=== PATIENT | male | born 1970 | race Two or more races ===

== ENCOUNTER 2025-05-24 20:51 | Inpatient (IN) | payer OTHER ==
[2025-05-24 21:17] LABS: #Basophils 0.07 10x3/uL (0.0-0.2); #Eosinophils 0.88 10x3/uL (0.0-0.7); #Monocytes 1.21 10x3/uL (0.11-0.59); #Neutrophils 9.02 10x3/uL (1.40-6.50); %Basophils 0.5 % (0.0-1.0); %Eosinophils 6.7 % (0.0-10.0); %Lymphocytes 14.7 % (21.0-51.0); %Monocytes 9.2 % (0.0-10.0); %Neutrophils 68.5 % (42.0-75.0); Hematocrit 32.0 % (42.0-52.0); Hemoglobin 10.9 g/dL (14.0-18.0); Mean Corpuscular Hemoglobin 33.0 pg (27.0-31.0); Mean Corpuscular Volume 97.0 fL (78.0-98.0); Platelet Count 245 10x3/uL (130-400); Red Blood Cell (RBC) Count 3.30 mill/uL (4.70-6.10); White Blood Cell (WBC) Count 13.17 10x3/uL (4.8-10.8)
[2025-05-24] MEDS ORDERED: Nitroglycerin 0.4 MG TAB 1 EACH ONE (21:26)
[2025-05-24 21:32] LABS: ALT (SGPT) 28 U/L (Less than 45); AST (SGOT) 56 U/L (11-34); Albumin 3.5 g/dL (3.1-4.5); Alkaline Phosphatase 104 U/L (40-110); Anion Gap 11 mmol/L (10-20); BUN (Urea Nitrogen) 8 mg/dL (8.4-25.7); Bilirubin, Total 0.3 mg/dL (0.3-1.2); Calc. Creatinine Clearance 0 mL/min (70-130); Calcium 8.3 mg/dL (7.8-10.44); Carbon Dioxide 24 mmol/L (22-29); Chloride 107 mmol/L (98-107); Globulin 2.5 g/dL (2.4-3.5); Glucose 97 mg/dL (70-105); Potassium 3.7 mmol/L (3.5-5.1); Sodium 138 mmol/L (136-145)
[2025-05-25] MEDS ORDERED: Ondansetron PF 4 MG/2 ML Vial IVP PRN (01:29)
[2025-05-25] MEDS ORDERED: Nitroglycerin 0.4 MG TAB (25 Tab Bottle) SL PRN (01:34)
[2025-05-25 03:52] VITALS: BMI 24.0
[2025-05-25 04:25] LABS: #Basophils 0.05 10x3/uL (0.0-0.2); #Eosinophils 1.06 10x3/uL (0.0-0.7); #Monocytes 1.30 10x3/uL (0.11-0.59); #Neutrophils 10.61 10x3/uL (1.40-6.50); %Basophils 0.3 % (0.0-1.0); %Eosinophils 7.1 % (0.0-10.0); %Lymphocytes 12.3 % (21.0-51.0); %Monocytes 8.7 % (0.0-10.0); %Neutrophils 71.3 % (42.0-75.0); Hematocrit 37.4 % (42.0-52.0); Hemoglobin 12.7 g/dL (14.0-18.0); Mean Corpuscular Hemoglobin 32.8 pg (27.0-31.0); Mean Corpuscular Volume 96.6 fL (78.0-98.0); Platelet Count 306 10x3/uL (130-400); Red Blood Cell (RBC) Count 3.87 mill/uL (4.70-6.10); White Blood Cell (WBC) Count 14.89 10x3/uL (4.8-10.8)
[2025-05-25] MEDS: Aspirin Chewable 81 MG TAB PO SCH ×2 (04:33→09:11)
[2025-05-25 05:23] LABS: ALT (SGPT) 130 U/L (Less than 45); AST (SGOT) 181 U/L (11-34); Albumin 4.1 g/dL (3.1-4.5); Alkaline Phosphatase 167 U/L (40-110); Anion Gap 16 mmol/L (10-20); BUN (Urea Nitrogen) 8 mg/dL (8.4-25.7); Bilirubin, Total 0.6 mg/dL (0.3-1.2); Calc. Creatinine Clearance 134 mL/min (70-130); Calcium 9.2 mg/dL (7.8-10.44); Carbon Dioxide 23 mmol/L (22-29); Chloride 103 mmol/L (98-107); Globulin 2.8 g/dL (2.4-3.5); Glucose 131 mg/dL (70-105); Potassium 4.2 mmol/L (3.5-5.1); Sodium 138 mmol/L (136-145)
[2025-05-25] MEDS: LevoFLOXacin 750 mg/D5W 750 MG in Premix 1 BAG IVPB SCH (09:08)
[2025-05-25] MEDS ORDERED: hydrALAZINE 20 MG/ML VIAL SLOW IVP PRN (13:01)
[2025-05-25] MEDS: Carvedilol 6.25 MG TAB PO SCH (14:18)
[2025-05-25] MEDS: Acetaminophen 325 MG TAB PO PRN (14:18)
[2025-05-25] MEDS: Phenytoin Extended Release 100 MG CAP PO SCH (14:18)
[2025-05-25] MEDS: Benzonatate 100 MG CAP PO PRN (14:18)
[2025-05-25] MEDS: VANCOMYCIN 2 GRAM/400 ML BAG 2 GM in Premix 1 BAG IVPB SCH (15:03)
[2025-05-25] MEDS ORDERED: Vancomycin 1 GM in Premix 1 BAG IVPB SCH (21:00)
[2025-05-25] MEDS: Benztropine 1 MG TAB PO SCH (21:07)
[2025-05-25] MEDS: Divalproex Sodium 250 MG DR.TAB PO SCH (21:07)
[2025-05-25] MEDS: levETIRAcetam 500 MG TAB PO SCH (21:07)
[2025-05-26] MEDS: Vancomycin 1.5 GM / NS 500ML VIAL-2-BAG IVPB SCH (00:10)
[2025-05-26] MEDS ORDERED: Vancomycin 1.5 GRAM/300 ML BAG IVPB SCH (02:00)
[2025-05-26 04:42] LABS: Vancomycin, Random 19.2 ug/mL (See Comment)
[2025-05-26 05:09] LABS: Anion Gap 12 mmol/L (10-20); BUN (Urea Nitrogen) 13 mg/dL (8.4-25.7); Calc. Creatinine Clearance 147 mL/min (70-130); Calcium 8.8 mg/dL (7.8-10.44); Carbon Dioxide 27 mmol/L (22-29); Chloride 106 mmol/L (98-107); Glucose 110 mg/dL (70-105); Potassium 4.3 mmol/L (3.5-5.1); Sodium 141 mmol/L (136-145)
[2025-05-26 05:19] LABS: CRP, High Sensitivity at Bryan 20.05 mg/dL (< or = 0.5)
[2025-05-26 05:38] LABS: #Basophils 0.07 10x3/uL (0.0-0.2); #Eosinophils 0.97 10x3/uL (0.0-0.7); #Monocytes 0.96 10x3/uL (0.11-0.59); #Neutrophils 7.42 10x3/uL (1.40-6.50); %Basophils 0.6 % (0.0-1.0); %Eosinophils 8.7 % (0.0-10.0); %Lymphocytes 15.5 % (21.0-51.0); %Monocytes 8.6 % (0.0-10.0); %Neutrophils 66.2 % (42.0-75.0); Hematocrit 33.2 % (42.0-52.0); Hemoglobin 11.2 g/dL (14.0-18.0); Mean Corpuscular Hemoglobin 33.5 pg (27.0-31.0); Mean Corpuscular Volume 99.4 fL (78.0-98.0); Platelet Count 267 10x3/uL (130-400); Red Blood Cell (RBC) Count 3.34 mill/uL (4.70-6.10); White Blood Cell (WBC) Count 11.20 10x3/uL (4.8-10.8)
[2025-05-26] MEDS: Pantoprazole 40 MG DR.TAB PO SCH (09:05)
[2025-05-26] MEDS: Vancomycin HCl 1.25 GM in Sodium Chloride 0.9% 250 ML 250 ML IVPB SCH ×2 (11:40→15:29)
[2025-05-26] MEDS: Ketorolac Tromethamine 30 MG (1 mL) VIAL IVP SCH (12:02)
[2025-05-26] MEDS ORDERED: Iopamidol-370 76% 500 ML MDV (1 ML CHARGE) ONE (13:23)
[2025-05-27 05:28] LABS: #Basophils 0.06 10x3/uL (0.0-0.2); #Eosinophils 1.02 10x3/uL (0.0-0.7); #Monocytes 0.74 10x3/uL (0.11-0.59); #Neutrophils 5.90 10x3/uL (1.40-6.50); %Basophils 0.6 % (0.0-1.0); %Eosinophils 10.1 % (0.0-10.0); %Lymphocytes 23.4 % (21.0-51.0); %Monocytes 7.3 % (0.0-10.0); %Neutrophils 58.3 % (42.0-75.0); Hematocrit 31.0 % (42.0-52.0); Hemoglobin 10.4 g/dL (14.0-18.0); Mean Corpuscular Hemoglobin 33.1 pg (27.0-31.0); Mean Corpuscular Volume 98.7 fL (78.0-98.0); Platelet Count 235 10x3/uL (130-400); Red Blood Cell (RBC) Count 3.14 mill/uL (4.70-6.10); White Blood Cell (WBC) Count 10.12 10x3/uL (4.8-10.8)
[2025-05-27 05:39] LABS: Anion Gap 11 mmol/L (10-20); BUN (Urea Nitrogen) 7 mg/dL (8.4-25.7); Calc. Creatinine Clearance 195 mL/min (70-130); Calcium 8.8 mg/dL (7.8-10.44); Carbon Dioxide 27 mmol/L (22-29); Chloride 106 mmol/L (98-107); Glucose 97 mg/dL (70-105); Potassium 3.7 mmol/L (3.5-5.1); Sodium 140 mmol/L (136-145)
[2025-05-27 05:45] LABS: Vancomycin, Random 16.9 ug/mL (See Comment)
[2025-05-28] MEDS: HYDROcodone/Acetaminophen 5/325 mg Tablet PO PRN (12:22)
[2025-05-28 14:38] VITALS: BMI 24.0
[2025-05-29 04:43] LABS: Calc. Creatinine Clearance 170.0 mL/min (70-130); Vancomycin, Random 27.1 ug/mL (See Comment)
[2025-05-29 04:52] LABS: #Basophils 0.05 10x3/uL (0.0-0.2); #Eosinophils 0.90 10x3/uL (0.0-0.7); #Monocytes 0.85 10x3/uL (0.11-0.59); #Neutrophils 4.16 10x3/uL (1.40-6.50); %Basophils 0.6 % (0.0-1.0); %Eosinophils 11.2 % (0.0-10.0); %Lymphocytes 25.2 % (21.0-51.0); %Monocytes 10.6 % (0.0-10.0); %Neutrophils 52.0 % (42.0-75.0); Hematocrit 33.1 % (42.0-52.0); Hemoglobin 10.9 g/dL (14.0-18.0); Mean Corpuscular Hemoglobin 32.5 pg (27.0-31.0); Mean Corpuscular Volume 98.8 fL (78.0-98.0); Platelet Count 254 10x3/uL (130-400); Red Blood Cell (RBC) Count 3.35 mill/uL (4.70-6.10); White Blood Cell (WBC) Count 8.01 10x3/uL (4.8-10.8)
[2025-05-29 05:12] LABS: Anion Gap 10 mmol/L (10-20); BUN (Urea Nitrogen) 11 mg/dL (8.4-25.7); Calc. Creatinine Clearance 173 mL/min (70-130); Calcium 8.9 mg/dL (7.8-10.44); Carbon Dioxide 28 mmol/L (22-29); Chloride 104 mmol/L (98-107); Glucose 122 mg/dL (70-105); Potassium 4.0 mmol/L (3.5-5.1); Sodium 138 mmol/L (136-145)
[2025-05-29] MEDS ORDERED: PROPOFOL 20 ML ONE ×3 (09:11→10:45)
[2025-05-29] MEDS ORDERED: Albuterol HFA (OR) 200 PUFF INH ONE (09:42)
[2025-05-29] MEDS ORDERED: fentaNYL PF 100 MCG/2 ML SYRINGE ONE ×2 (09:42→10:45)
[2025-05-29] MEDS ORDERED: Bupivacaine 0.25% HCL 30 ML VIAL ONE (10:54)
[2025-05-29] MEDS: HYDROcodone/Acetaminophen 10/325 mg Tablet PO PRN (17:21)
[2025-05-30 06:09] LABS: #Basophils 0.06 10x3/uL (0.0-0.2); #Eosinophils 0.85 10x3/uL (0.0-0.7); #Monocytes 0.83 10x3/uL (0.11-0.59); #Neutrophils 3.37 10x3/uL (1.40-6.50); %Basophils 0.8 % (0.0-1.0); %Eosinophils 11.8 % (0.0-10.0); %Lymphocytes 28.9 % (21.0-51.0); %Monocytes 11.5 % (0.0-10.0); %Neutrophils 46.7 % (42.0-75.0); Hematocrit 32.0 % (42.0-52.0); Hemoglobin 10.5 g/dL (14.0-18.0); Mean Corpuscular Hemoglobin 32.6 pg (27.0-31.0); Mean Corpuscular Volume 99.4 fL (78.0-98.0); Platelet Count 255 10x3/uL (130-400); Red Blood Cell (RBC) Count 3.22 mill/uL (4.70-6.10); White Blood Cell (WBC) Count 7.22 10x3/uL (4.8-10.8)
[2025-05-30 06:31] LABS: Anion Gap 14 mmol/L (10-20); BUN (Urea Nitrogen) 12 mg/dL (8.4-25.7); Calc. Creatinine Clearance 163 mL/min (70-130); Calcium 9.0 mg/dL (7.8-10.44); Carbon Dioxide 25 mmol/L (22-29); Chloride 105 mmol/L (98-107); Glucose 109 mg/dL (70-105); Potassium 4.3 mmol/L (3.5-5.1); Sodium 140 mmol/L (136-145)
[2025-05-30] MEDS: Mupirocin 1 GM TUBE NASAL SCH (20:23)
[2025-05-31 05:58] LABS: #Basophils 0.06 10x3/uL (0.0-0.2); #Eosinophils 0.91 10x3/uL (0.0-0.7); #Monocytes 1.06 10x3/uL (0.11-0.59); #Neutrophils 5.19 10x3/uL (1.40-6.50); %Basophils 0.6 % (0.0-1.0); %Eosinophils 9.8 % (0.0-10.0); %Lymphocytes 21.4 % (21.0-51.0); %Monocytes 11.4 % (0.0-10.0); %Neutrophils 56.2 % (42.0-75.0); Hematocrit 34.6 % (42.0-52.0); Hemoglobin 11.5 g/dL (14.0-18.0); Mean Corpuscular Hemoglobin 32.5 pg (27.0-31.0); Mean Corpuscular Volume 97.7 fL (78.0-98.0); Platelet Count 272 10x3/uL (130-400); Red Blood Cell (RBC) Count 3.54 mill/uL (4.70-6.10); White Blood Cell (WBC) Count 9.26 10x3/uL (4.8-10.8)
[2025-05-31 06:13] LABS: Anion Gap 13 mmol/L (10-20); BUN (Urea Nitrogen) 11 mg/dL (8.4-25.7); Calc. Creatinine Clearance 176 mL/min (70-130); Calcium 9.1 mg/dL (7.8-10.44); Carbon Dioxide 26 mmol/L (22-29); Chloride 105 mmol/L (98-107); Glucose 111 mg/dL (70-105); Potassium 4.3 mmol/L (3.5-5.1); Sodium 140 mmol/L (136-145)
[2025-05-31] MEDS: Senokot S 8.6-50 MG TAB PO SCH (20:45)
[2025-06-01 05:29] LABS: #Basophils 0.07 10x3/uL (0.0-0.2); #Eosinophils 0.83 10x3/uL (0.0-0.7); #Monocytes 0.83 10x3/uL (0.11-0.59); #Neutrophils 3.02 10x3/uL (1.40-6.50); %Basophils 1.0 % (0.0-1.0); %Eosinophils 11.7 % (0.0-10.0); %Lymphocytes 32.3 % (21.0-51.0); %Monocytes 11.7 % (0.0-10.0); %Neutrophils 42.5 % (42.0-75.0); Hematocrit 35.2 % (42.0-52.0); Hemoglobin 11.7 g/dL (14.0-18.0); Mean Corpuscular Hemoglobin 32.4 pg (27.0-31.0); Mean Corpuscular Volume 97.5 fL (78.0-98.0); Platelet Count 283 10x3/uL (130-400); Red Blood Cell (RBC) Count 3.61 mill/uL (4.70-6.10); White Blood Cell (WBC) Count 7.11 10x3/uL (4.8-10.8)
[2025-06-01 06:11] LABS: Anion Gap 11 mmol/L (10-20); BUN (Urea Nitrogen) 12 mg/dL (8.4-25.7); Calc. Creatinine Clearance 170 mL/min (70-130); Carbon Dioxide 27 mmol/L (22-29); Chloride 105 mmol/L (98-107); Potassium 4.3 mmol/L (3.5-5.1); Sodium 139 mmol/L (136-145)
[2025-06-01 06:12] LABS: Calcium 9.0 mg/dL (7.8-10.44); Glucose 108 mg/dL (70-105)
[2025-06-01] MEDS: Calcium Carbonate 500 MG ChewTAB PO PRN (08:57)
[2025-06-01 18:23] VITALS: BP 126/92; TEMP 98.3
== END 2025-06-01 19:10 | DRG 871 ==
LOC: ERS 20:51 → EEVIPCON 20:51 → 2NO 05-25 01:32 → OBSVTOIN 05-25 12:53 → 2NO 05-26 22:46 → T4-B 05-29 12:22
PROVIDERS: ADMIT Student in an Organized Health Care Education/Training Program; ATTEND Internal Medicine
PROC: 3E03329 Introduction of Other Anti-infective into Peripheral Vein, Percutaneous Approach (ICD-10-PCS; principal; 2025-05-25)
PROC: 0J9H0ZZ Drainage of Left Lower Arm Subcutaneous Tissue and Fascia, Open Approach (ICD-10-PCS; principal; 2025-05-25)
DX: A41.9 Sepsis, unspecified organism (principal); J18.9 Pneumonia, unspecified organism; L02.414 Cutaneous abscess of left upper limb; I24.9 Acute ischemic heart disease, unspecified; L03.114 Cellulitis of left upper limb; Z66 Do not resuscitate; N40.0 Benign prostatic hyperplasia without lower urinary tract symptoms; I10 Essential (primary) hypertension; G40.909 Epilepsy, unspecified, not intractable, without status epilepticus; F25.9 Schizoaffective disorder, unspecified; Z79.899 Other long term (current) drug therapy
CPT/HCPCS: 36415; 71045; 78452; 80048; 80053; 80202; 82565; 83880; 84484; 85025; 86141; 87070; 87077; 87081; 87147; 87186; 87205; 93005; 93017; 94760; 96374; 96376; 97139; A9502; J0169; J0665; J1885; J1956; J2250; J2704; J2785; J3373; J3375; J7030; J7050; Q0162; Q0175; Q9967